=== PATIENT | female | born 1975 ===

== ENCOUNTER 2016-08-18 18:59 | Emergency (ER) | payer BC ==
[2016-08-18 19:06] VITALS: TEMP 98.6; BMI 43.0
[2016-08-18 21:19] LABS: ADD MANUAL DIFF? NO
[2016-08-18 21:24] LABS: BASO # 0.03 K/mm3 (0.0-2.0); BASO % 0.4 % (0.0-3.0); EOS # 0.2 (0.0-0.7); EOS % 2.5 % (1.5-5.0); GRAN # 4.68 (1.4-6.5); GRAN % 60.7 % (50.0-68.0); HEMATOCRIT 37.1 % (36.0-48.0); LYMPH # 2.3 (1.2-3.4); LYMPH % 29.8 % (22.0-35.0); MEAN CELL VOLUME 83.4 fL (80.0-105.0); MEAN CORPUSCULAR HEMOGLOBIN 27.6 pg (25.0-35.0); MEAN CORPUSCULAR HGB CONC 33.2 g/dl (31.0-37.0); MEAN PLATELET VOLUME 11.5 fl (7.0-11.0); MONO # 0.5 (0.1-0.6); MONO % 6.6 % (1.0-6.0); PLATELET COUNT 187 10^3/uL (120.0-450.0); RED CELL DISTRIBUTION WIDTH 14.2 % (11.5-14.5); WHITE BLOOD COUNT 7.7 10^3/ul (4.5-11.0)
[2016-08-18 21:25] LABS: URINE BILIRUBIN NEGATIVE (NEGATIVE); URINE BLOOD LARGE (NEGATIVE); URINE GLUCOSE (UA) NEGATIVE (NEGATIVE); URINE KETONE NEGATIVE (NEGATIVE); URINE LEUKOCYTE ESTERASE TRACE Leu/uL (NEGATIVE); URINE PROTEIN NEGATIVE mg/dL (<30 mg/dL); URINE UROBILINOGEN 0.2 E.U./dL (<1 E.U./dL)
[2016-08-18 21:35] LABS: URINE APPEARANCE CLEAR (CLEAR); URINE COLOR YELLOW (YELLOW)
[2016-08-18 21:41] LABS: INR 0.95 (0.93-1.08); PARTIAL THROMBOPLASTIN TIME 30.3 Seconds (23.7-30.8)
[2016-08-18 22:00] LABS: ALB/GLOB RATIO 1.1 (1.1-1.8); ALKALINE PHOSPHATASE 78 U/L (38-133); ALT/SGPT 24 U/L (7-56); AST/SGOT 21 U/L (15-39); BILIRUBIN,TOTAL 0.4 mg/dL (0.2-1.3); BLOOD UREA NITROGEN 9 mg/dL (7-21); CALCIUM 8.9 mg/dL (8.4-10.5); CARBON DIOXIDE 24 mmol/L (21-33); CHLORIDE 104 mmol/L (98-107); GFR AFRICAN-AMERICAN > 60; GLUCOSE,RANDOM 78 mg/dL (70-110); POTASSIUM 3.7 mmol/L (3.6-5.0); SODIUM 134 mmol/L (132-148); TOTAL PROTEIN 6.4 g/dL (5.8-8.3)
[2016-08-18 22:08] LABS: URINE BACTERIA SMALL (NEG); URINE EPITHELIAL CELLS 0 - 2 /hpf (0-5); URINE RBC 20 - 25 /hpf (0-2); URINE WBC 0 - 2 /hpf (0-6)
--- NOTE | 2016-08-18 22:21 | ED PDOC ---
Arrival/HPI - General Chief Complaint: Abdominal Pain Time Seen by Provider: 08/18/16 19:16 Historian: Patient - History of Present Illness Narrative History of Present Illness (Text): 08/18/16 22:19 Patient reports 1 day history of vaginal bleeding, with lower abdominal pain. Otherwise: (-) N/V, (-) fever, (-) urinary symptoms, (-) prior salpingitis, (-) prior ectopic . Has (+) care and (+) prior OB ultrasound on - had +IUP at 9 weeks. 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 absent: Fatigue, Weight Change, Fevers Respiratory: Normal. absent: SOB, Cough, Sputum Cardiovascular: Normal. absent: Chest Pain, Palpitations, Edema Gastrointestinal: Normal, Abdominal Pain. absent: Stool Changes, Appetite Changes Genitourinary Female: Normal, Vaginal Bleeding. absent: Dysuria, Frequency, Hematuria Skin: Normal. absent: Rash, Pruritis, Skin Lesions Physical Exam - Physical Exam Narrative Physical Exam (Text): 08/18/16 22:23 GENERAL APPEARANCE: Patient is awake, alert, oriented x 3, in mild distress. SKIN: Warm, dry; (-) cyanosis. EYES: (-) conjunctival pallor. ENMT: Mucous membranes moist. NECK: (-) tenderness, (-) stiffness, (-) lymphadenopathy. CHEST AND RESPIRATORY: (-) rales, (-) rhonchi, (-) wheezes; breath sounds equal bilaterally. HEART AND CARDIOVASCULAR: (-) irregularity; (-) murmur, (-) gallop. ABDOMEN AND GI: Soft; (-) tenderness. EXTREMITIES: (-) deformity. NEURO AND PSYCH: Mental status as above; (-) focal findings. Vital Signs Temp Pulse Resp BP Pulse Ox 08/18/16 23:50 62 16 155/87 H 96 08/18/16 23:06 66 96 H 126/75 08/18/16 20:54 65 18 168/89 H 99 08/18/16 19:03 98.6 F 67 16 175/93 H 99 Medical Decision Making ED Course and Treatment: 08/18/16 22:23 41 yo F presents with one-day history of vaginal bleeding and lower abdominal pain. Plan: -- Labs -- Urinalysis -- Reassess and disposition -- TV US 08/18/16 23:40 Ultrasound results reviewed and shows a 12 week 6 day live IUP. Lab results reviewed. All diagnostic results were discussed in great detail with the patient. On reevaluation, the patient is laying in bed comfortably in no acute distress. On exam, abdomen is soft with no tenderness. Based on history, exam and diagnostic results plan will be for patient follow- up with OB. Patient advised to follow up her elevated blood pressure with her OB without fail. Advised pelvic rest. Patient states she fully agrees with and understands discharge instructions. States that she agrees with the plan and disposition. Verbalized and repeated discharge instructions and plan. I have given the patient opportunity to ask any additional questions. Follow up with OB physician in 1-2 days without fail. Return to the emergency room at any time for any new or worsening symptoms. - Lab Interpretations Lab Results: 08/18/16 21:10 08/18/16 21:10 Lab Results 08/18/16 21:51: Blood Type O POSITIVE, Antibody Screen Negative, BBK History Checked No verified bt 08/18/16 21:10: Beta HCG, Quant 67793.00 H 08/18/16 21:10: Sodium 134, Potassium 3.7, Chloride 104, Carbon Dioxide 24, Anion Gap 10, BUN 9, Creatinine 0.5, Est GFR ( Amer) > 60, Est GFR (Non- Af Amer) > 60, Random Glucose 78, Calcium 8.9, Total Bilirubin 0.4, AST 21, ALT 24, Alkaline Phosphatase 78, Total Protein 6.4, Albumin 3.4, Globulin 3.0, Albumin/Globulin Ratio 1.1 08/18/16 21:10: Urine Color Yellow, Urine Appearance Clear, Urine pH 6.0, Ur Specific [place] 1.020, Urine Protein Negative, Urine Glucose (UA) Negative, Urine Ketones Negative, Urine Blood Large H, Urine Nitrate Negative, Urine Bilirubin Negative, Urine Urobilinogen 0.2, Ur Leukocyte Esterase Trace H, Urine RBC 20 - 25, Urine WBC 0 - 2, Ur Epithelial Cells 0 - 2, Urine Bacteria Small 08/18/16 21:10: PT 10.3, INR 0.95, APTT 30.3 08/18/16 21:10: WBC 7.7, RBC 4.45, Hgb 12.3, Hct 37.1, MCV 83.4, MCH 27.6, MCHC 33.2, RDW 14.2, Plt Count 187, MPV 11.5 H, Gran % 60.7, Lymph % (Auto) 29.8, [place] % (Auto) 6.6 H, Eos % (Auto) 2.5, Baso % (Auto) 0.4, Gran # 4.68, Lymph # 2.3, [place] # 0.5, Eos # 0.2, Baso # 0.03 I have reviewed the lab results: Yes Interpretation: All labs normal - RAD Interpretation Narrative RAD Interpretations (Text): 08/18/16 23:43 TV US: Gestation: Single live intrauterine gestation. heart rate of 167 beats per minute. Estimated gestational age of 12 weeks 6 days by measurements. Uterus/cervix: No subchorionic hemorrhage. No cervical dilatation or effacement. Nabothian cysts. 4.9 x 4.9 x 5.6 cm uterine mass. Ovaries: Not visualized. No adnexal masses. Free fluid: No significant free fluid. IMPRESSION: 1. Single live intrauterine gestation. 2. Probable fibroid. 3. Incidental/non-acute findings are described above. 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 Disposition/Present on Arrival - Present on Arrival Any Indicators Present on Arrival: No History of DVT/PE: No History of Uncontrolled Diabetes: No Urinary Catheter: No History of Decub. Ulcer: No History Surgical Site Infection Following: None - Disposition Have Diagnosis and Disposition been Completed?: Yes Diagnosis: Threatened Disposition: HOME/ ROUTINE Disposition Time: 23:30 Patient Plan: Discharge Condition: STABLE Discharge Instructions (ExitCare): Threatened Miscarriage (ED) Print Language: GUINEAN Additional Instructions: Thank you for letting us take care of you today. You were treated for threatened miscarriage. The emergency medical care you received today was directed at your acute symptoms. Return to the Emergency Department if your symptoms worsen, do not improve, or if you have any other problems. Please contact your OB doctor in 2 days for re-evaluation and follow up. Bring any paperwork you were given at discharge with you along with any medications you are taking to your follow up visit. Our treatment cannot replace ongoing medical care by a primary care provider (PCP) outside of the emergency department. Thank you for allowing the [facility] team to be part of your care today. Referrals: Danielle Mantilla CNM [Primary Care Provider] - Follow up with primary Forms: WORK NOTE
--- NOTE | 2016-08-18 23:02 | US ---
EXAM: US First Trimester, Transabdominal CLINICAL HISTORY: 41 years old, female; Pain; complicated by abdominal or pelvic pain; Lower; First trimester; Gestational age or lmp: 05/26/2016; ; Additional info: Preg, vag bleed TECHNIQUE: Real-time transabdominal obstetrical ultrasound of the maternal pelvis and a first trimester with image documentation. COMPARISON: No relevant prior studies available. FINDINGS: Gestation: Single live intrauterine gestation. heart rate of 167 beats per minute. Estimated gestational age of 12 weeks 6 days by measurements. Uterus/cervix: No subchorionic hemorrhage. No cervical dilatation or effacement. Nabothian cysts. 4.9 x 4.9 x 5.6 cm uterine mass. Ovaries: Not visualized. No adnexal masses. Free fluid: No significant free fluid. IMPRESSION: 1. Single live intrauterine gestation. 2. Probable fibroid. 3. Incidental/non-acute findings are described above. EXAM: US , Transvaginal CLINICAL HISTORY: 41 years old, female; Pain; complicated by abdominal or pelvic pain; Lower; First trimester; Gestational age or lmp: 05/26/2016; ; Additional info: Preg, vag bleed TECHNIQUE: Real-time transvaginal obstetrical ultrasound of the maternal pelvis and a first trimester with image documentation. Transvaginal imaging was used for better evaluation of the fetus and adnexa. COMPARISON: No relevant prior studies available. FINDINGS: Gestation: Single live intrauterine gestation. heart rate of 167 beats per minute. Estimated gestational age of 12 weeks 6 days by measurements. Uterus/cervix: No subchorionic hemorrhage. No cervical dilatation or effacement. Nabothian cysts. 4.9 x 4.9 x 5.6 cm uterine mass. Ovaries: Not visualized. No adnexal masses. Free fluid: No significant free fluid.
[2016-08-18 23:53] VITALS: BP 155/87; PULSE 62; RESP 16; O2SAT 96
== END 2016-08-18 23:54 | disposition home or self-care (01) ==
LOC: ED 18:59
DX: O20.0 Threatened abortion (principal); Z3A.12 12 weeks gestation of pregnancy